=== PATIENT | female | born 1990 | race African-American/Black ===

== ENCOUNTER 2016-09-26 08:06 | Emergency (ER) | payer OTHER ==
[~2016-09-26 08:06] MED LIST: METRONIDAZOLE; NITROFURANTOIN PO; NO MEDICATIONS; PHENERGAN25 MG PO; VOLTAREN75 MG PO
[2016-09-26 08:08] LABS: URINE SOURCE CLEAN CATCH
[2016-09-26 08:10] LABS: URINE APPEARANCE CLEAR; URINE BILIRUBIN NEG (NEG); URINE BLOOD NEG (NEG); URINE COLOR YELLOW; URINE GLUCOSE NEG (NORM); URINE KETONE NEG (NEG); URINE LEUKOCYTE ESTERASE 2+ (NEG); URINE NITRATE NEG (NEG); URINE PH 5.5 (5-8); URINE PROTEIN NEG (NEG); URINE SPECIFIC GRAVITY 1.025 (1.003-1.035); URINE UROBILINOGEN 0.2 MG/DL (NORM)
[2016-09-26 08:13] LABS: MICRO INDICATED? YES
[2016-09-26 08:16] LABS: CULTURE INDICATED? YES; URINE BACTERIA 1+ (NEG); URINE SQUAMOUS EPITHELIAL CELL MANY /[HPF]
== END 2016-09-26 08:48 | disposition home or self-care (01) ==
LOC: SED 08:06
PROVIDERS: Emergency Medicine
DX: K29.70 Gastritis, unspecified, without bleeding (principal); N30.00 Acute cystitis without hematuria; J45.909 Unspecified asthma, uncomplicated; Z98.890 Other specified postprocedural states; Z88.0 Allergy status to penicillin; Z88.1 Allergy status to other antibiotic agents; Z79.899 Other long term (current) drug therapy
CPT/HCPCS: 81003; 84703; 87086; 99284